=== PATIENT | female | born 1975 | race Caucasian/White ===

== ENCOUNTER 2018-06-11 20:35 | Emergency (ER) | payer OTHER ==
[~2018-06-11] VITALS: Ht 160 cm; Wt 75.7 kg
[~2018-06-11 20:35] MED LIST: PRI20 PO
[2018-06-11 20:50] VITALS: BP 128/91; Ht 160 cm; Wt 75.7 kg
== END 2018-06-11 23:22 | disposition home or self-care (01) ==
LOC: ED 20:35
DX: N61.0 Mastitis without abscess (principal); N60.02 Solitary cyst of left breast
CPT/HCPCS: 76641

== ENCOUNTER 2018-10-01 19:31 | Emergency (ER) | payer OTHER ==
[~2018-10-01] VITALS: Ht 160 cm; Wt 74.4 kg
[2018-10-01 20:09] VITALS: BP 128/88
== END 2018-10-01 22:41 | disposition left against medical advice (07) ==
LOC: ED 19:31
DX: Z53.21 Procedure and treatment not carried out due to patient leaving prior to being seen by health care provider (principal)

== ENCOUNTER 2018-10-02 14:51 | Emergency (ER) | payer OTHER ==
[~2018-10-02] VITALS: Ht 160 cm; Wt 73.9 kg
[2018-10-02 15:06] VITALS: BP 134/89; Ht 160 cm; Wt 73.9 kg
== END 2018-10-02 17:30 | disposition home or self-care (01) ==
LOC: ED 14:51
DX: S39.012A Strain of muscle, fascia and tendon of lower back, initial encounter (principal); N39.0 Urinary tract infection, site not specified; R07.89 Other chest pain; X58.XXXA Exposure to other specified factors, initial encounter; Y93.89 Activity, other specified; Y92.89 Other specified places as the place of occurrence of the external cause; Y99.8 Other external cause status
CPT/HCPCS: J1885

== ENCOUNTER 2019-03-24 00:59 | Emergency (ER) | payer OTHER ==
[~2019-03-24] VITALS: Ht 160 cm; Wt 76.2 kg
[2019-03-24 01:07] VITALS: Ht 160 cm; Wt 76.2 kg
[2019-03-24 02:39] VITALS: BP 132/79
== END 2019-03-24 02:39 | disposition home or self-care (01) ==
LOC: ED 00:59
DX: S09.93XA Unspecified injury of face, initial encounter (principal); K04.01 Reversible pulpitis; K04.7 Periapical abscess without sinus; Z90.49 Acquired absence of other specified parts of digestive tract; X58.XXXA Exposure to other specified factors, initial encounter; Y93.89 Activity, other specified; Y92.89 Other specified places as the place of occurrence of the external cause; Y99.8 Other external cause status